=== PATIENT | male | born 1995 | race American Indian/Alaskan Native ===

== ENCOUNTER 2019-03-20 17:43 | Emergency (ER) | payer SELFPAY ==
--- NOTE | 2019-03-20 18:06 | Emergency Department Report ---
Blank Doc - Documentation Documentation: This is a 23-year-old male that presents with chest pain with SOB. Denies any radiation of pain. This initial assessment/diagnostic orders/clinical plan/treatment(s) is/are subject to change based on patient's health status, clinical progression and re- assessment by fellow clinical providers in the ED. Further treatment and workup at subsequent clinical providers discretion. Patient/guardians urged not to elope from the ED as their condition may be serious if not clinically assessed and managed. Initial orders include: 1- Patient sent to [facility] for further evaluation and treatment 2- labs 3- CXR 4- EKG
[2019-03-20 18:57] LABS: Basophils # (Auto) 0.1 K/mm3 (0.0-0.1); Basophils % (Auto) 0.7 % (0.0-1.8); Eosinophils # (Auto) 0.3 K/mm3 (0.0-0.4); Eosinophils % (Auto) 3.7 % (0.0-4.3); Hematocrit 43.8 % (35.5-45.6); Hemoglobin 14.2 gm/dl (11.8-15.2); Lymphocytes # (Auto) 2.3 K/mm3 (1.2-5.4); Lymphocytes % (Auto) 29.3 % (13.4-35.0); Mean Corpuscular HGB Conc 33 % (32-34); Mean Corpuscular Volume 74 fl (84-94); Monocytes % (Auto) 12.5 % (0.0-7.3); Platelet Count 440 K/mm3 (140-440); Red Blood Count 5.96 M/mm3 (3.65-5.03); Red Cell Distribution Width 14.3 % (13.2-15.2)
--- NOTE | 2019-03-20 19:03 | XRay Report ---
PROCEDURE: XR CHEST ROUTINE 2V TECHNIQUE: PA and lateral chest radiographs were obtained. HISTORY: Chest Pain COMPARISONS: None. FINDINGS: Heart: Normal size. Mediastinum/Vessels: Normal. Lungs/Pleural space: Clear.. Bony thorax: No acute osseous abnormality. IMPRESSION: Negative examination. This document is electronically signed by Keshawn Persaud MD., March 20 2019 07:01:09 PM ET
[2019-03-20 19:11] LABS: BUN/Creatinine Ratio 11; Blood Urea Nitrogen 9 mg/dL (9-20); Hemolysis Index 12
[2019-03-20 19:19] LABS: INR 0.98 (0.87-1.13)
[2019-03-20 19:20] LABS: Partial Thromboplastin Time 27.5 Sec. (24.2-36.6)
[2019-03-20] MEDS ORDERED: HEPARIN 10,000 UNITS/10 ML ONE (20:06)
[2019-03-20] MEDS ORDERED: HEPARIN/ 0.45% NACL-25,000 UNIT/500 ML 25,000 UNIT/500 ML BAG ONE (20:06)
[2019-03-20 20:56] VITALS: BP 149/91
--- NOTE | 2019-03-20 23:16 | Emergency Department Report ---
ED Chest Pain HPI - General Chief Complaint: Chest Pain Stated Complaint: CHEST PAIN Time Seen by Provider: 03/20/19 18:04 Source: patient Mode of arrival: Ambulatory Limitations: No Limitations - History of Present Illness Initial Comments: Patient is a 23-year-old -Luxembourger male with a remote history of asthma as a child, and who presents to the ED with complaint of acute onset persistent constant sharp right chest wall pain for the last 12 hours. Patient states that the pain has been persistent, constant and sharp with diaphoresis on his face. Patient denies shortness of breath, fever, chills, nausea, vomiting, headache, palpitations, abdominal pain, back pain, neck pain, cough, heavy lifting, traumatic injury or dizziness. MD Complaint: chest pain (right sided chest wall ) -: Sudden, hour(s) (12) Onset: during rest Pain Location: right chest Pain Radiation: none Severity: moderate Severity scale (0 -10): 6 Quality: aching, sharp Consistency: constant Improves With: nothing Worsens With: nothing re: diaphoresis. denies: nausea, vomting, dyspnea, sense of impending doom Other Symptoms: denies: cough, fever, syncope, rash, acid taste in mouth, leg swelling, palpitations, burping, other Treatments Prior to Arrival: none - Related Data On Oral Contraceptives: No Previous Rx's Medication Instructions Recorded Last Taken Type Cyclobenzaprine HCl [Flexeril 5 MG 5 mg PO Q8H PRN #15 tab 03/20/19 Unknown Rx TAB] Naproxen [Naprosyn] 500 mg PO Q12H PRN #20 tablet 03/20/19 Unknown Rx hydrOXYzine PAMOATE [Vistaril] 25 mg PO Q6HR PRN #24 capsule 03/20/19 Unknown Rx Allergies Allergy/AdvReac Type Severity Reaction Status Date / Time No Known Allergies Allergy Unverified 03/20/19 20:57 Heart Score - HEART Score History: Slightly suspicious EKG: Normal Age: < 45 Risk factors: No known risk factors Troponin: < normal limit HEART Score: 0 - Critical Actions Critical Actions: 0-3 pts:0.9-1.7%risk of adverse cardiac event.Candidate for discharge ED Review of Systems ROS: Stated complaint: CHEST PAIN Other details as noted in HPI Comment: All other systems reviewed and negative Constitutional: denies: chills, fever Eyes: denies: eye pain, eye discharge, vision change ENT: denies: ear pain, throat pain Respiratory: denies: cough, shortness of breath, wheezing Cardiovascular: chest pain. denies: palpitations Endocrine: no symptoms reported Gastrointestinal: denies: abdominal pain, nausea, diarrhea Genitourinary: denies: urgency, dysuria Musculoskeletal: denies: back pain, joint swelling, arthralgia Skin: denies: rash, lesions Neurological: denies: headache, weakness, paresthesias Psychiatric: denies: anxiety, depression Hematological/Lymphatic: denies: easy bleeding, easy bruising ED Past Medical Hx - Past Medical History Previous Medical History?: Yes Hx Asthma: Yes - Surgical History Past Surgical History?: Yes Additional Surgical History: abdominal surgery when he is a baby - Social History Smoking Status: Never Smoker Substance Use Type: None - Medications Home Medications: Home Medications Medication Instructions Recorded Confirmed Last Taken Type Cyclobenzaprine HCl [Flexeril 5 MG 5 mg PO Q8H PRN #15 tab 03/20/19 Unknown Rx TAB] Naproxen [Naprosyn] 500 mg PO Q12H PRN #20 tablet 03/20/19 Unknown Rx hydrOXYzine PAMOATE [Vistaril] 25 mg PO Q6HR PRN #24 capsule 03/20/19 Unknown Rx ED Physical Exam - General Limitations: No Limitations General appearance: alert, in no apparent distress - Head Head exam: Present: atraumatic, normocephalic, normal inspection - Eye Eye exam: Present: normal appearance, PERRL, EOMI. Absent: scleral icterus, conjunctival injection, nystagmus, periorbital swelling, periorbital tenderness Pupils: Present: normal accommodation - ENT ENT exam: Present: normal exam, normal orophraynx, mucous membranes moist, TM's normal bilaterally, normal external ear exam - Neck Neck exam: Present: normal inspection, full ROM. Absent: tenderness, meningismus, lymphadenopathy, thyromegaly - Respiratory Respiratory exam: Present: normal lung sounds bilaterally, chest wall tenderness (right chest wall tenderness to palpation). Absent: respiratory distress, wheezes, rales, rhonchi, accessory muscle use, decreased breath sounds, prolonged expiratory - Cardiovascular Cardiovascular Exam: Present: regular rate, normal rhythm, normal heart sounds. Absent: systolic murmur, diastolic murmur, rubs, gallop - GI/Abdominal GI/Abdominal exam: Present: soft, normal bowel sounds. Absent: distended, tenderness, guarding, hyperactive bowel sounds, hypoactive bowel sounds, organomegaly - Rectal Rectal exam: Present: deferred - Extremities Exam Extremities exam: Present: normal inspection, full ROM, normal capillary refill - Back Exam Back exam: Present: normal inspection, full ROM. Absent: tenderness, CVA tenderness (R), CVA tenderness (L), muscle spasm, paraspinal tenderness - Neurological Exam Neurological exam: Present: alert, oriented X3, CN II-XII intact, normal gait, reflexes normal - Psychiatric Psychiatric exam: Present: normal affect, normal mood - Skin Skin exam: Present: warm, dry, intact, normal color. Absent: rash ED Course Vital Signs 03/20/19 03/20/19 17:54 20:55 Temperature 98.6 F 98.7 F Pulse Rate 87 73 Respiratory 18 16 Rate Blood Pressure 137/87 149/91 [Right] O2 Sat by Pulse 99 97 Oximetry - Reevaluation(s) Reevaluation #1: 03/20/19 23:14 The patient is alert and oriented 3 and is not in distress with normal vital signs. EKG shows sinus rhythm with a heart rate of 86 bpm, with no ST or T-wave abnormalities or pathological Q waves. Chest x-ray shows no acute cardiopulmonary abnormalities. Lab test results were reviewed and are unremarkable including troponin levels. Patient does not have any coronary artery disease risk factors and is currently not on any medications, or does not smoke or use any tobacco products. Physical exam revealed a palpable reproducible right-sided chest wall pain consistent with acute costochondritis or muscle strain of chest wall. Patient was treated for pain in the ED and dis charged home on pain medications and muscle relaxants and advised to follow-up with his primary care physician in 3-5 days for reevaluation or return to the ED immediately if symptoms get worse. FRANCHESKA score - Francheska Score Age > 65: (0) No Aspirin use within the Past 7 Days: (0) No 3 or more CAD Risk Factors: (0) No 2 or more Angina events in past 24 hrs: (0) No Known CAD with more than 50% Stenosis: (0) No Elevated Cardiac Markers: (0) No ST Deviation Greater than 0.5mm: (0) No FRANCHESKA Score: 0 ED Medical Decision Making - Lab Data Result diagrams: 03/20/19 18:24 03/20/19 18:24 - EKG Data EKG shows normal: sinus rhythm Rate: normal - EKG Data Interpretation: normal EKG 03/20/19 23:17 Normal sinus rhythm with a ventricular rate of 86 bpm, no ST or T-wave abnormalities or pathological Q waves. - Radiology Data Radiology results: report reviewed, image reviewed Chest x-ray: No acute cardiopulmonary abnormalities - Medical Decision Making The patient is alert and oriented 3 and is not in distress with normal vital signs. EKG shows sinus rhythm with a heart rate of 86 bpm, with no ST or T-wave abnormalities or pathological Q waves. Chest x-ray shows no acute cardiopulmonary abnormalities. Lab test results were reviewed and are unremarkable including troponin levels. Patient does not have any coronary art rashmi disease risk factors and is currently not on any medications, or does not smoke or use any tobacco products. Physical exam revealed a palpable reproducible right-sided chest wall pain consistent with acute costochondritis or muscle strain of chest wall. Patient was treated for pain in the ED and discharged home on pain medications and muscle relaxants and advised to follow- up with his primary care physician in 3-5 days for reevaluation or return to the ED immediately if symptoms get worse. - Differential Diagnosis Nonspecific chest pain; Acute costochondritis; Anxiety and stress Critical care attestation.: If time is entered above; I have spent that time in minutes in the direct care of this critically ill patient, excluding procedure time. ED Disposition Clinical Impression: Acute costochondritis, Nonspecific chest pain, Anxiety as acute reaction to exceptional stress Disposition: DC-01 TO HOME OR SELFCARE Is pt being admited?: No Does the pt Need Aspirin: No Condition: Stable Instructions: Chest Pain (ED), Costochondritis (ED), Generalized Anxiety Disord er (ED) Additional Instructions: Take medications with food, drink plenty of fluids and follow up with your primary care physician as advised in 3-5 days. Return to the ED immediately if symptoms get worse. Prescriptions: Cyclobenzaprine HCl [Flexeril 5 MG TAB] 5 mg PO Q8H PRN #15 tab PRN Reason: Spasms Naproxen [Naprosyn] 500 mg PO Q12H PRN #20 tablet PRN Reason: Pain , Severe (7-10) hydrOXYzine PAMOATE [Vistaril] 25 mg PO Q6HR PRN #24 capsule PRN Reason: Anxiety Referrals: PRIMARY CARE, [Primary Care Provider] - 3-5 Days Time of Disposition: 23:20 Print Language: LAO
[2019-03-20] MEDS ORDERED: IBUPROFEN PO ONE (23:21)
[2019-03-20] MEDS ORDERED: PEPCID PO ONE (23:21)
== END 2019-03-20 23:31 | disposition home or self-care (01) ==
LOC: ED 17:43
DX: M94.0 Chondrocostal junction syndrome [Tietze] (principal); F43.0 Acute stress reaction; J45.909 Unspecified asthma, uncomplicated
CPT/HCPCS: 36415; 71046; 80048; 84484; 85025; 85610; 85730; 93005; 93010; 99284; J1644